=== PATIENT | female | born 1950 | race Caucasian/White ===

== ENCOUNTER 2022-08-28 10:03 | Outpatient (CLI) | payer MEDICARE, SELFPAY ==
--- NOTE | 2022-08-28 10:15 | CRLHL7_ITS ---
For Patients: As a result of the Century Cures Act, medical imaging exams and procedure reports are released immediately into your electronic medical record. You may view this report before your referring provider. If you have questions, please contact your health care provider. BILATERAL SCREENING MAMMOGRAM WITH COMPUTER-AIDED DETECTION AND TOMOSYNTHESIS TECHNIQUE: CC and MLO views were obtained. These mammographic images have been obtained using full-field digital technique. These mammographic images were interpreted with the benefit of computer-aided detection. Breast Tomosynthesis was used in this interpretation. COMPARISON FILM: 08/24/21, 12/10/19, 11/05/18. FINDINGS: The breasts are heterogeneously dense, which may obscure small masses IMPRESSION: There is no radiographic evidence for malignancy. ASSESSMENT: BI-RADS Category 1: Negative RECOMMENDATION: Routine screening mammogram in 1 year. A lay language report of this examination will be provided to the patient. Silvano Neal M.D. Diagnostic Radiologist [email or web address] JAN/[email or web address] ortega/Dictated by: Silvano Neal MD @ 08/29/2022 12:06:00 PM (Electronically Signed)
== END 2022-08-28 10:04 | disposition home or self-care (01) ==
LOC: MAMMO 10:07
PROVIDERS: PCP Internal Medicine; Visit Provider Obstetrics & Gynecology
DX: Z12.31 Encounter for screening mammogram for malignant neoplasm of breast (principal); R92.2 Inconclusive mammogram
CPT/HCPCS: 77063; 77067

== ENCOUNTER 2022-10-01 10:31 | Outpatient (CLI) | payer MEDICARE, BC, SELFPAY ==
--- NOTE | 2022-10-01 11:00 | CRLHL7_ITS ---
For Patients: As a result of the Century Cures Act, medical imaging exams and procedure reports are released immediately into your electronic medical record. You may view this report before your referring provider. If you have questions, please contact your health care provider. Indication: Occipital neuralgia. Technique: Multiaxial CT images of the head were obtained before and after 74 ml Isovue 370 IV contrast. Coronal and sagittal reformats were submitted. Comparison: No prior studies are available for comparison at this institution. Findings: Mild parenchymal volume loss. Midline structures are centrally located. No convincing evidence of intra- or extra-axial fluid collections. The calvarium and skull base are unremarkable, with normal aeration of the visualized petrous temporal bones and paranasal sinuses on both sides. No abnormal postcontrast enhancement. Impression: 1. No radiographic evidence of acute intracranial abnormality. 2. No pathologic enhancement. Please note that all CT scans at this facility use dose modulation, iterative reconstruction, and/or weight-based dosing when appropriate to reduce radiation dose to as low as reasonably achievable. Dictated by Silvano Knight MD @ 10/01/2022 1:34:36 PM (Electronically Signed)
[2022-10-01 11:34] LABS: Creatinine* 0.7 mg/dL (0.5-1.5); Estimated Glomerular Filt Rate 91 ml/min
== END 2022-10-01 10:32 | disposition home or self-care (01) ==
LOC: CT 10:32
PROVIDERS: PCP Internal Medicine; Visit Provider Internal Medicine
DX: M54.81 Occipital neuralgia (principal)
CPT/HCPCS: 36415; 70470; 82565; Q9967

== ENCOUNTER 2024-01-07 11:47 | Outpatient (CLI) | payer MEDICARE, BC, SELFPAY | END 2024-01-07 11:48 | disposition home or self-care (01) | PROVIDERS: PCP Internal Medicine; Visit Provider Otolaryngology | DX: H91.90 Unspecified hearing loss, unspecified ear (principal) | CPT/HCPCS: 84443; 86039; 86431; 86618 ==

== ENCOUNTER 2024-02-26 14:50 | Outpatient (CLI) | payer MEDICARE, BC, SELFPAY ==
--- NOTE | 2024-02-26 15:00 | CRLHL7_ITS ---
For Patients: As a result of the Century Cures Act, medical imaging exams and procedure reports are released immediately into your electronic medical record. You may view this report before your referring provider. If you have questions, please contact your health care provider. BILATERAL DIGITAL SCREENING MAMMOGRAM WITH COMPUTER-AIDED DETECTION AND TOMOSYNTHESIS CLINICAL HISTORY: : Routine screening exam. COMPARISON: 08/28/2022, 08/24/2021 TECHNIQUE: Digital mammogram in CC and MLO projections including computer-aided detection (CAD). Tomosynthesis was used in this interpretation. BREAST COMPOSITION: Heterogeneously dense FINDINGS: RIGHT Breast: No suspicious findings LEFT Breast: Focal asymmetric density lateral left breast 5 cm from the nipple. IMPRESSION: LEFT breast asymmetry/mass. RECOMMENDATIONS: Additional mammographic views of the LEFT breast including 3D spot compression cc/MLO. LEFT breast ultrasound may also be required. A member of the radiology staff will be contacting the patient to arrange for this additional study. BI-RADS Category 0: Incomplete: Need Additional Imaging Evaluation and/or Prior Mammograms for Comparison. Dictated by Silvano Neal MD @ 02/28/2024 12:34:22 PM (Electronically Signed)
== END 2024-02-26 14:51 | disposition home or self-care (01) ==
LOC: MAMMO 14:51
PROVIDERS: PCP Internal Medicine; Visit Provider Internal Medicine
DX: Z12.31 Encounter for screening mammogram for malignant neoplasm of breast (principal); N63.20 Unspecified lump in the left breast, unspecified quadrant
CPT/HCPCS: 77063; 77067

== ENCOUNTER 2024-03-11 09:26 | Outpatient (CLI) | payer MEDICARE, BC, SELFPAY ==
--- NOTE | 2024-03-11 09:45 | CRLHL7_ITS ---
For Patients: As a result of the Cures Act, medical imaging exams and procedure reports are released immediately into your electronic medical record. You may view this report before your referring provider. If you have questions, please contact your health care provider. DIGITAL DIAGNOSTIC LEFT MAMMOGRAM USING TOMOSYNTHESIS AND COMPUTER-AIDED DETECTION LEFT BREAST ULTRASOUND CLINICAL HISTORY: LEFT breast mass/asymmetry. COMPARISON: 02/26/2024. TECHNIQUE: Digital LEFT mammogram in two projections with computer-aided detection. Tomosynthesis was used in this interpretation. Real-time ultrasound imaging of LEFT breast with imaging documentation. BREAST COMPOSITION: There are areas of scattered fibroglandular density. FINDINGS: 3D spot compression CC/MLO LEFT breast mammogram images submitted. Persistent nodular density within the lateral LEFT breast without architectural distortion. No suspicious calcifications. Targeted LEFT breast ultrasound 3 o`clock 4 cm from the nipple performed. Multi duct ectasia noted with small adjacent cysts. There is solid area measuring 1 cm. IMPRESSION: Solid nodular structure LEFT breast 3 o`clock 4 cm from the nipple measuring 1 cm. RECOMMENDATIONS: Ultrasound-guided core needle biopsy. Results and recommendations discussed with the patient. BI-RADS Category 4: Suspicious A lay language report of this examination will be provided to the patient. Dictated by Silvano Neal MD @ 03/11/2024 10:29:32 AM jj/Dictated by: Silvano Neal MD @ 03/11/2024 10:29:00 AM (Electronically Signed)
--- NOTE | 2024-03-11 10:15 | CRLHL7_ITS ---
For Patients: As a result of the Cures Act, medical imaging exams and procedure reports are released immediately into your electronic medical record. You may view this report before your referring provider. If you have questions, please contact your health care provider. PLEASE SEE DIGITAL DIAGNOSTIC LEFT MAMMOGRAM PERFORMED SAME DAY CRL:shannon ortega/Dictated by: Silvano Neal MD @ 03/11/2024 10:31:00 AM (Electronically Signed)
== END 2024-03-11 09:27 | disposition home or self-care (01) ==
LOC: MAMMO 09:27
PROVIDERS: PCP Internal Medicine; Visit Provider Obstetrics & Gynecology
DX: N63.20 Unspecified lump in the left breast, unspecified quadrant (principal); R92.8 Other abnormal and inconclusive findings on diagnostic imaging of breast
CPT/HCPCS: 76642; 77065; G0279

== ENCOUNTER 2024-03-23 09:23 | Outpatient (CLI) | payer MEDICARE, BC, SELFPAY ==
--- NOTE | 2024-03-23 10:41 | P.ANES_ITS ---
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
== END 2024-03-23 09:24 | disposition home or self-care (01) ==
LOC: OP CLINIC 09:24
PROVIDERS: PCP Internal Medicine; Visit Provider Internal Medicine
DX: Z12.11 Encounter for screening for malignant neoplasm of colon (principal)
CPT/HCPCS: 00812; 45378; 99100; J2704

== ENCOUNTER 2024-03-30 10:06 | Outpatient (CLI) | payer MEDICARE, BC, SELFPAY ==
--- NOTE | 2024-03-30 10:15 | CRLHL7_ITS ---
For Patients: As a result of the Century Cures Act, medical imaging exams and procedure reports are released immediately into your electronic medical record. You may view this report before your referring provider. If you have questions, please contact your health care provider. ULTRASOUND-GUIDED BREAST BIOPSY AND POST-BIOPSY DIGITAL MAMMOGRAM FOR BIOPSY MARKER PLACEMENT CLINICAL HISTORY: Indeterminate nodule. COMPARISON STUDIES: 03/11/2024. TECHNIQUE: Real-time ultrasound with image documentation was used for targeting the breast lesion. Core biopsy specimens were obtained using an automated gun with a 18-gauge biopsy needle. Post-biopsy CC and ML digital mammograms were obtained to document position of the biopsy marker. CONSENT and TIME OUT: The procedure, risks, and alternatives were explained to the patient and a consent was signed. [place] Protocol was followed including pre-procedure verification that relevant information/documentation was available, reviewed and properly matched to the patient; consent accurate and complete; and equipment and supplies available. Time Out was conducted just prior to starting procedure to verify the four required elements: patient identity, correct side/site marked (if applicable), procedure, relevant images/results properly labeled and displayed (if applicable). PROCEDURE: The patient was positioned supine on the ultrasound table. The breast was prepped with ChloraPrep. 6 cc of 1 percent lidocaine was used for local anesthesia. Core samples were obtained. A sterile metal biopsy clip was placed percutaneously to evelina the lesion position within the breast. The specimens were placed in 10% formalin and sent to the pathology department. Pressure was held on the biopsy site until all bleeding subsided. The skin incision was closed with Steri-Strips. An ice pack was positioned over the biopsy site. Post-biopsy instructions were reviewed with the patient, and a written copy was given to her. LATERALITY: LEFT breast. LESION: Solid and cystic nodule measuring 11 x 9 x 7 millimeters at 3 o`clock 4 cm from the nipple. SUSPICION FOR MALIGNANCY: Moderate. NUMBER OF SAMPLES: 6. BIOPSY CLIP SHAPE: Oval. PROXIMITY OF CLIP TO TARGET: Within the lesion. IMPRESSION: Ultrasound-guided breast biopsy. When the pathology report is available, an addendum to this report will be made. ACR not applicable Dictated by Silvano Neal MD @ 03/30/2024 11:29:52 AM jj/Dictated by: Silvano Neal MD @ 03/30/2024 11:29:00 AM (Electronically Signed)
--- NOTE | 2024-03-30 11:00 | CRLHL7_ITS ---
For Patients: As a result of the Century Cures Act, medical imaging exams and procedure reports are released immediately into your electronic medical record. You may view this report before your referring provider. If you have questions, please contact your health care provider. PLEASE SEE ULTRASOUND-GUIDED LEFT BREAST BIOPSY PERFORMED SAME DAY CRL:shannon ortega/Dictated by: Silvano Neal MD @ 03/30/2024 12:05:00 PM (Electronically Signed)
== END 2024-03-30 10:07 | disposition home or self-care (01) ==
LOC: US 10:07
PROVIDERS: PCP Internal Medicine; Visit Provider Internal Medicine
DX: N63.20 Unspecified lump in the left breast, unspecified quadrant (principal); R92.8 Other abnormal and inconclusive findings on diagnostic imaging of breast
CPT/HCPCS: 19083; 77065; 88305; A4648; A4649

== ENCOUNTER 2024-05-12 06:56 | Day surgery (SDC) | payer MEDICARE, BC, SELFPAY ==
[2024-05-12 07:11] VITALS: BMI 25.7
[2024-05-12 07:20] VITALS: BP 132/75; PULSE 73; RESP 16; TEMP 36.8; O2SAT 100
[2024-05-12] MEDS: LACTATED RINGERS 1000 ML 1,000 ML 100 ML IV (07:20)
[2024-05-12] MEDS: SODIUM CHLORIDE 0.9 % (FLUSH) 10 ML SYRINGE IVF (07:20)
--- NOTE | 2024-05-12 08:15 | CRLHL7_ITS ---
For Patients: As a result of the Cures Act, medical imaging exams and procedure reports are released immediately into your electronic medical record. You may view this report before your referring provider. If you have questions, please contact your health care provider. LEFT BREAST WIRE LOCALIZATION USING ULTRASOUND GUIDANCE CLINICAL HISTORY: Papilloma, surgical excision. LATERALITY: LEFT breast. LESION: Solid and cystic lesion measuring 11 x 9 x 7 mm at 3 o`clock 4 cm from the nipple. LOCALIZATION WIRE: Kopans hook wire. TECHNIQUE: The localization wire was placed using real-time ultrasound guidance with image documentation. Cranial-caudal and medial-lateral digital mammograms were obtained after localization wire placement. CONSENT and TIME OUT: The procedure, risks, and alternatives were explained to the patient and a consent was signed. [place] Protocol was followed including pre-procedure verification that relevant information/documentation was available, reviewed and properly matched to the patient; consent accurate and complete; and equipment and supplies available. Time Out was conducted just prior to starting procedure to verify the four required elements: patient identity, correct side/site marked (if applicable), procedure, relevant images/results properly labeled and displayed (if applicable). PROCEDURE: The skin was prepped with ChloraPrep and 3 cc of 1% lidocaine was injected for local anesthesia. The localization wire was placed within or near the targeted breast lesion using ultrasound guidance. The patient tolerated the procedure well. PROXIMITY OF WIRE TO LESION: The wire is located within the lesion adjacent to the clip. IMPRESSION: Successful breast wire localization. ACR not applicable Dictated by Silvano Neal MD @ 05/12/2024 11:42:58 AM /sp SP/Dictated by: Silvano Neal MD @ 05/12/2024 11:43:00 AM (Electronically Signed)
--- NOTE | 2024-05-12 09:00 | CRLHL7_ITS ---
For Patients: As a result of the Century Cures Act, medical imaging exams and procedure reports are released immediately into your electronic medical record. You may view this report before your referring provider. If you have questions, please contact your health care provider. PLEASE SEE LEFT BREAST ULTRASOUND-GUIDED WIRE LOCALIZATION OF SAME DAY. CRL:sp SP/Dictated by: Silvano Neal MD @ 05/12/2024 11:43:00 AM (Electronically Signed)
--- NOTE | 2024-05-12 09:06 | W.PM.H&PU ---
History & Physical Update History & Physical Update H&P Reviewed and patient assessed: No changes noted
[2024-05-12] MEDS: CEFAZOLIN 1 GM inj IVP (09:16)
[2024-05-12] MEDS: LIDOCAINE 1% MDV 20 ML INJECTION (09:28)
[2024-05-12] MEDS: BUPIVACAINE 0.25% 30 ML INJECTION (09:28)
--- NOTE | 2024-05-12 10:02 | PM.GSPRC ---
Operative Note Date of procedure: 05/12/24 Pre-op diagnosis: Intraductal papilloma, left breast Post-op diagnosis: Same Type of Procedure: Left breast lumpectomy Indications: Patient is a 73-year-old female who had an area of distortion noted on her mammogram. Biopsy of this area showed an intraductal papilloma. Risks and benefits of excision of the lesion were discussed at length with the patient, please see consultation note for full discussion. Operative risks included but was not limited to: Bleeding, infection, risk of damage to surrounding structures, possible need for additional procedures and postoperative complications such as pneumonia, pulmonary emboli or NH. All questions and concerns were addressed with the patient agreeing to proceed. Procedure Description: Prior to arrival in the operating room, the patient was taken to radiology where a wire was placed to localize the previously placed clip. The patient was then brought to the operating room where anesthesia was induced. The left breast was prepped and draped in the usual sterile fashion. Timeout was confirmed. Local anesthesia was infiltrated into a transverse incision on the lateral aspect of the breast at the location of the tip of the wire. Using electrocautery, the segment of breast tissue containing the tip of the wire and clip was excised. During dissection the clip and wire were both visualized within the specimen. The mass was then passed painted on the back table to help assist with orientation in pathology and sent for permanent evaluation. The wound was irrigated and all irrigant suctioned from the wound. Additional local anesthesia was infiltrated. The wounds were then closed in layers using absorbable suture, and Steri-Strips were placed over the wound. An Wilmer wrap was applied for compression. The patient was awakened without incident and taken to PACU in stable condition. Sponge, needle and instrument counts were correct x3 at the termination of the case. Findings: Wire localized left breast mass. Specimen removed with clip and wire visualized. Anesthesia: MAC and local Surgeon: Kalyn Palacios MD Estimated blood loss (mL): 5 Additional Specimen Information: Left breast mass Condition: stable Disposition: PACU
[2024-05-12 10:08] VITALS: BP 100/56; PULSE 67; RESP 16; TEMP 36.6; O2SAT 94
--- NOTE | 2024-05-12 10:13 | P.ANES_ITS ---
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
[2024-05-12 10:15] VITALS: BP 95/56; PULSE 72; RESP 16; O2SAT 99
[2024-05-12 10:30] VITALS: BP 108/62; PULSE 59; RESP 16; O2SAT 98
--- NOTE | 2024-05-12 10:40 | W.ANESCHARGE ---
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
[2024-05-12 10:45] VITALS: BP 108/59; PULSE 61; RESP 16; O2SAT 99
[2024-05-12] MEDS: ACETAMINOPHEN 325 MG TABLET 650 MG PO (11:30)
== END 2024-05-12 11:30 | disposition home or self-care (01) ==
PROVIDERS: PCP Internal Medicine; Visit Provider Surgery
PROC: (CPT 19125; principal; 2024-05-12 08:45)
PROC: (CPT 19125; 2024-05-12 08:45)
DX: D24.2 Benign neoplasm of left breast (principal)
CPT/HCPCS: 19125; 00400; 19281; 19285; 88307; 99100; A9270; C1769; J0665; J0690; J1100; J2405; J2704; J3010; J7120

== ENCOUNTER 2025-06-23 11:21 | Outpatient (CLI) | payer MEDICARE, BC, SELFPAY ==
--- NOTE | 2025-06-23 11:30 | CRLHL7_ITS ---
For Patients: As a result of the Century Cures Act, medical imaging exams and procedure reports are released immediately into your electronic medical record. You may view this report before your referring provider. If you have questions, please contact your health care provider. INDICATION: BILATERAL SCREENING MAMMGRAM, ASYMPTOMATIC 75 Y/O FEMALE COMPARISON: 05/12/2024, 03/30/2024, 03/11/2024 TECHNIQUE: Digital mammogram in CC and MLO projections including computer-aided detection (CAD) and tomosynthesis. BREAST COMPOSITION: The breasts are heterogeneously dense, which may obscure small masses. FINDINGS: No suspicious findings. ASSESSMENT: BI-RADS 2 Benign RECOMMENDATION: Annual screening mammogram. A lay language report of this examination will be provided to the patient. Dictated by: Silvano Neal MD @ 06/23/2025 12:27:49 (Electronically Signed)
== END 2025-06-23 11:22 | disposition home or self-care (01) ==
LOC: MAMMO 11:22
PROVIDERS: PCP Internal Medicine; Visit Provider Obstetrics & Gynecology
DX: Z12.31 Encounter for screening mammogram for malignant neoplasm of breast (principal); R92.333 Mammographic heterogeneous density, bilateral breasts
CPT/HCPCS: 77063; 77067